=== PATIENT | female | born 1965 | race Caucasian/White ===

== ENCOUNTER 2024-05-19 17:54 | Inpatient (IN) | payer OTHER, SELFPAY ==
[2024-05-19] VITALS (11 sets, daily range): BP systolic 107–178; BP diastolic 52–93; PULSE 56–98; RESP 13–18; TEMP 35.8–36.8; O2SAT 94–100; BMI 29.5
--- NOTE | 2024-05-19 18:03 | EKG12_ITS ---
Test Reason : CP ADMIT Blood Pressure : */* mmHG Vent. Rate : 67 BPM Atrial Rate : 67 BPM P-R Int : 140 ms QRS Dur : 66 ms QT Int : 424 ms P-R-T Axes : 49 -30 7 degrees QTcB Int : 448 ms Sinus rhythm with marked sinus arrhythmia Left axis deviation Low voltage QRS Inferior infarct , age undetermined Abnormal ECG When compared with ECG of 19-May-2024 18:02, MANUAL COMPARISON REQUIRED DATA IS UNCONFIRMED Confirmed by BROOKS BURGER ([id number]), video effects editor YOANDY BELLE ([id number]) on 05/24/2024 6:16:30 AM Referred By: RANGEL Confirmed By: BROOKS BURGER
--- NOTE | 2024-05-19 18:04 | EDS_ITS ---
HPI History of Present Illness Chief Complaint: Chest Pain Detail of Chief Complaint: Chest tightness Informant: patient Onset/Context/Timing Onset: Today and Hours Activity at onset: sudden and light activity Timing: Continuous Quality: Positive for Tightness Location: Substernal Current Severity: Mild Maximum Severity: Moderate Worsened By: Nothing Relieved By: Nothing Associated Symptoms: Positive for Dyspnea and - (Ache intermittently to the left side of the jaw.); Negative for Nausea, Vomiting, Diaphoresis, Cough, Fever, Lightheadedness, Acid Reflux or Palpitations Narrative Prior Similar Symptoms: No CVD Risk Factors: Positive for Hypertension; Negative for Diabetes, Hypercholesterolemia, Family History 1' </=55 or Smoking PE Risk Factors: Negative for Recent Travel/Surgery, Recent Immobilization, Prior DVT or PE or OCP + Smoking + >/=35 TAD Risk Factors: Positive for Marfan's Syndrome and Family History; Negative for Hypertension [facility] Medical History (Updated 05/19/24 @ 19:[address] Willian Celaya MD) Hypertension Allergy/AdvReac Type Severity Reaction Status Date / Time No Known Allergies Allergy Verified 05/19/24 17:55 Social History Smoking Status: Never smoker EXAM Physical Exam Const Vital Signs: 05/19/24 17:55 05/19/24 18:04 05/19/24 18:16 Temperature 96.5 F L Temperature Source Temporal Pulse Rate 78 74 Respiratory Rate 16 Blood Pressure 178/90 H 170/61 H Blood Pressure Mean 119 Pulse Ox 96 100 Oxygen Delivery Method Room Air Room Air 05/19/24 18:54 05/19/24 18:58 05/19/24 19:00 Temperature Temperature Source Pulse Rate 69 68 98 Respiratory Rate 16 16 Blood Pressure 140/88 H 140/88 H 140/91 H Blood Pressure Mean 105 107 Pulse Ox 97 94 Oxygen Delivery Method Room Air Room Air 05/19/24 19:04 Temperature Temperature Source Pulse Rate 90 Respiratory Rate Blood Pressure 131/93 H Blood Pressure Mean Pulse Ox Oxygen Delivery Method [facility] MDM History & Record Review Discussion w/independent historian: Patient Lab Data Attestation: I reviewed the patient's lab results. Lab results narrative: CBC is unremarkable. Basic metabolic panel was a glucose of 160 with normal CO2 anion gap. Troponin is 4759. Labs: Laboratory Results - last 24 hr 05/19/24 18:05 WBC 6.6 RBC 5.12 Hgb 14.3 Hct 43.7 MCV 85.4 MCH 27.9 MCHC 32.7 RDW Std Deviation 42.5 RDW Coeff of Adolfo 13.6 Plt Count 258 MPV 10.2 Immature Gran % (Auto) 0.200 Neut % (Auto) 52.0 Lymph % (Auto) 35.6 [place] % (Auto) 8.5 Eos % (Auto) 3.2 Baso % (Auto) 0.5 Absolute Neuts (auto) 3.4 Absolute Lymphs (auto) 2.34 Nucleated RBC % 0 PT Cancelled INR Cancelled APTT Cancelled Sodium 140 Potassium 3.6 Chloride 107 Carbon Dioxide 27.0 Anion Gap 6 BUN 13 Creatinine 0.77 Estim Creat Clear Calc 76.67 Est GFR (MDRD) Af Amer 98 Est GFR (MDRD) Non-Af 81 BUN/Creatinine Ratio 16.9 Glucose 116 H Calcium 9.8 Troponin I High Sens 4759 H* Radiography Chest X-Ray - ED: 1 View, Read by ED Physician, Normal, Heart, Lungs, Mediastinum, Bony Structures and No Acute Disease EKG Initial EKG: Attestation: I personally reviewed and interpreted this EKG as follows: Interpretation: Sinus Rhythm (Rate is 72. [place] to the left. NC interval is 106 6 ms per cures duration 70 ms. QT duration 388 ms. There is some ossific changes noted. There is no acute ischemic changes to suggest subendocardial OK or ST elevation OK.) Management Discussion w/another healthcare provider: Hospitalist and Retail Support Associate Treatment and Re-Evaluation :: Patient received aspirin. She had relief of her chest heaviness with nitroglycerin. In light of her history, laboratory results Dr. Buchanan was contacted. Would like patient anticoagulate with heparin. Would like patient n.p.o. Plan is cath in the morning. Patient and were made aware. Hospitalist has been paged. Discharge Plan Triage Chief Complaint: Chest Pain ED Provider: Willian eClaya Dx/Rx/DC Orders Clinical Impression: Non-ST elevated myocardial infarction, Elevated blood pressure reading with diagnosis of hypertension Primary Care Provider: Pascual Zafar Referrals: Pascual Zafar DO [Primary Care Provider] - Print Language: Turkish Disposition Disposition: Acute Care Hospital [facility]
[2024-05-19] MEDS: Aspirin 81 MG TAB.CHEW 324 MG PO (18:08)
[2024-05-19] MEDS: Nitroglycerin SL (ED/IMG/CATH) 0.4 MG TABLET SL ×3 (18:16→19:04)
[2024-05-19 18:21] LABS: Absolute Lymphocyte Count 2.34 X10^3/uL (0.83-4.51); Absolute Neutrophil Count 3.4 X10^3/uL (2.0-7.7); Basophil# 0.03 X10^3/uL; Basophil% 0.5 % (0-1); Eosinophil# 0.21 X10^3/uL; Eosinophils% 3.2 % (0-5); Hematocrit 43.7 % (37-47); Hemoglobin 14.3 g/dL (12.0-15.0); Lymphocyte # 2.34 X10^3/ul (0.83-4.51); Lymphocyte % 35.6 % (19-41); Mean Corp Hgb Conc 32.7 g/dL (32-36); Mean Corpuscular Hgb 27.9 pg (27.0-32.0); Mean Corpuscular Volume 85.4 fL (81-99); Mean Platelet Vol. 10.2 fl (6.2-12.0); Monocyte# 0.56 X10^3/uL; Monocyte% 8.5 % (0-10); NRBC Flagged by Analyzer 0 % (0-5); Neutrophil # 3.43 X10^3/uL (2.7-7.7); Platelet Count 258 K/mm3 (150-450); RBC Distribution Width CV 13.6 % (11.6-14.6); RBC Distribution Width SD 42.5 fl (35.1-43.9); Red Blood Count 5.12 M/mm3 (4.2-5.4); White Blood Count 6.6 K/mm3 (4.4-11.0)
--- NOTE | 2024-05-19 18:30 | RAD_ITS ---
STUDY: X-RAY CHEST REASON FOR EXAM: Female, 58 years old. chest pain TECHNIQUE: AP portable COMPARISON: None. FINDINGS: The lungs are clear and expanded. Tiny calcified granuloma in the left lower lobe and right upper lobe There is no demonstrated pleural abnormality. Normal size heart. Normal mediastinum and vasiliy. Normal visualized pulmonary arteries. Normal visualized aortic arch and descending thoracic aorta. Normal visualized thoracic spine. Normal visualized ribs, clavicles, and shoulders. There is no demonstrated abnormality of the visualized soft tissue structures of the upper abdomen. RAD/Chest 1 View (Portable) IMPRESSION: Old granulomatous disease.. No acute cardiopulmonary pathology. Electronically Signed: Shady Armendariz MD at 19:11 [facility] ,
[2024-05-19 18:32] LABS: Anion Gap 6 (5-15); BUN 13 mg/dL (7-18); BUN/Creat Ratio 16.9 RATIO (10-20); Calcium,Total 9.8 mg/dL (8.5-10.1); Chloride 107 mmol/L (98-107); Creatinine, Serum 0.77 mg/dL (0.55-1.02); EST Glomerular Filtration Rate 81 mL/min (>60); Est Glom Filt Rate - Afr Amer 98 mL/min (>60); Estimated Creatinine Clearance 76.67 ml/min; Glucose 116 mg/dL (74-106); Potassium 3.6 mmol/L (3.5-5.1); Sodium Level 140 mmol/L (136-145); Troponin-I HS (w/2H Reflex) 4759 pg/mL (3.0-54.0)
[2024-05-19 19:05] LABS: Partial Thromboplast Time 26.6 Seconds (24.1-36.2); Prothrombin Time (Protime)PT. 12.9 SECONDS (11.7-14.9)
[2024-05-19] MEDS: Heparin Injection (Vial) 5,000 UNIT/ML VIAL 4000 UNIT IV (19:09)
[2024-05-19] MEDS: HEPARIN/D5w 25,000 UNITS 25,000 UNITS/250 ML IV.SOLN. 9 UNITS CONT INF (19:17)
--- NOTE | 2024-05-19 19:24 | HP.PCM.HOS_ITS ---
HPI - General General Date of Admission: 05/19/24 Date of Service: 05/19/24 Chief Complaint: Chest Pain HPI Narrative JUVENTINO PIERSON, is a 58 F with a past medical history of essential hypertension; on Lisinopril, overweight; with BMI of 29.6 this admission and positive family history of premature CAD in her father who allegedly had an W[place] at age 59 who presents to [facility] ER complaining of chest pain. Ms. Pierson reports her symptoms began a few hours prior to arrival with the sudden onset of chest pain with light activity. She describes the chest pain as substernal, pressure-like, tightness, continuous, moderate and radiating into her jaw with an aching sensation and with nothing seeming to make the pain better or worse. She also admits to SOB but she denies associated fever, chills, nausea, vomiting, abdominal pain, diaphoresis or other recent illness but she does admit to increased life-stress due to taking care of aging [id number] with her having a recent fall yesterday and with increased exertion trying to help her get up with subsequent back pain since that time as a precursor to her then developing chest pain. In the ER she was noted to have an elevated initial troponin level of 4,759 pg/mL present on admission that then escalated to 5,888 pg/mL on second check consistent with NSTEMI with the ER physician contacting the utility locate technician on-call with formal consultation pending in the AM for [facility]. She was then admitted to the PCU for ongoing care for a stay that is expected to extend beyond 2 midnights. [facility] Medical History Hypertension Home Medications ?Medication ?Instructions ?Recorded ?Last Taken ?Type lisinopril 10 mg tablet 10 mg PO DAILY 05/19/24 Unknown History Allergy/AdvReac Type Severity Reaction Status Date / Time No Known Allergies Allergy Verified 05/19/24 17:55 Social History Smoking Status: Never smoker ROS ROS Narrative Review of Systems: Constitutional: Patient denies fever or chills. Eyes: Patient denies changes in vision or discharge from eyes. ENT: Patient denies runny nose, sore throat or ear pain. Resp: Patient admits to SOB but denies cough. CV: Patient admits to chest pain with a continuous sensation of tightness as per HPI. GI: Patient denies nausea, vomiting, diarrhea, constipation or abdominal pain. : Patient denies dysuria or hematuria. MSK: Patient denies arthralgias or myalgias. Skin: Patient denies rash, abscess or jaundice. Psych: Patient denies symptoms of uncontrolled depression or anxiety. Neuro: Patient denies headache, paresthesias or focal neurologic deficits. Allergy: Patient denies lip swelling, tongue swelling or urticaria. Hematology: Patient denies easy bleeding or easy bruisability. Endocrinology: Patient denies polyuria, polydipsia or polyphagia. 14 point ROS otherwise negative except for positives noted above in HPI. Vital Signs Vital Signs Vital Signs: 05/19/24 17:55 05/19/24 18:04 05/19/24 18:16 Temperature 96.5 F L Temperature Source Temporal Pulse Rate 78 74 Respiratory Rate 16 Blood Pressure 178/90 H 170/61 H Blood Pressure Mean 119 Pulse Ox 96 100 Oxygen Delivery Method Room Air Room Air 05/19/24 18:54 05/19/24 18:58 05/19/24 19:00 Temperature Temperature Source Pulse Rate 69 68 98 Respiratory Rate 16 16 Blood Pressure 140/88 H 140/88 H 140/91 H Blood Pressure Mean 105 107 Pulse Ox 97 94 Oxygen Delivery Method Room Air Room Air 05/19/24 19:04 Temperature Temperature Source Pulse Rate 90 Respiratory Rate Blood Pressure 131/93 H Blood Pressure Mean Pulse Ox Oxygen Delivery Method Weight Weight: 167 lb Body Mass Index (BMI) 29.5 Physical Exam Const alert, oriented x3, no apparent distress, average body habitus and healthy appearing General Appearance: cooperative HEENT normocephalic, head/scalp atraumatic, hearing grossly normal bilaterally and moist oral mucous membranes Eyes PERRL and EOMs intact bilaterally Neck no lymphadenopathy and supple Resp normal respiratory effort, no retractions, no use of accessory muscles and clear to auscultation bilaterally Cardio regular rate and regular rhythm GI normal to inspection, nondistended, normoactive bowel sounds, soft to palpation, non-tender and non-distended Extremity normal to inspection, full ROM and no clubbing, cyanosis or edema Skin Skin Narrative: Patient has no evidence of rash, abscess or jaundice. Neuro oriented x3, CN's II-XII intact bilaterally, moves all extremities and no focal motor deficits Sensorium / Orientation: awake, alert, oriented to person, oriented to place and oriented to time Speech: speech normal Psych affect normal Results Medical Records Data Attestation: I reviewed the patient's medical records Lab / Micro Data Attestation: I reviewed the patient's lab results. 05/20/24 05:17 05/20/24 05:17 Labs: Laboratory Results - last 24 hr 05/19/24 18:05: WBC 6.6, RBC 5.12, Hgb 14.3, Hct 43.7, MCV 85.4, MCH 27.9, MCHC 32.7, RDW Std Deviation 42.5, RDW Coeff of Adolfo 13.6, Plt Count 258, MPV 10.2, Immature Gran % (Auto) 0.200, Neut % (Auto) 52.0, Lymph % (Auto) 35.6, [place] % (Auto) 8.5, Eos % (Auto) 3.2, Baso % (Auto) 0.5, Absolute Neuts (auto) 3.4, Absolute Lymphs (auto) 2.34, Nucleated RBC % 0, PT 12.9, INR 1.0, APTT 26.6, Sodium 140, Potassium 3.6, Chloride 107, Carbon Dioxide 27.0, Anion Gap 6, BUN 13, Creatinine 0.77, Estim Creat Clear Calc 76.67, Est GFR (MDRD) Af Amer 98, Est GFR (MDRD) Non-Af 81, BUN/Creatinine Ratio 16.9, Glucose 116 H, Calcium 9.8, Troponin I High Sens 4759 H* Imaging Radiology Impression Chest X-Ray 05/19/24 18:30 IMPRESSION: Old granulomatous disease.. No acute cardiopulmonary pathology. Electronically Signed: Shady Armendariz MD at 19:11 EST Reading Location ID and State: [facility] [place] Tel , Service support , Assessment & Plan Assessment/Plan (1) Non-ST elevated myocardial infarction: (2) Elevated blood pressure reading with diagnosis of hypertension: (3) Overweight (BMI 25.0-29.9): PLAN: Plan 1. NSTEMI; evidenced by elevated initial troponin of 4,759 pg/mL present on admission that the escalated to 5,888 pg/mL in the setting of a positive family history of premature CAD in her father who allegedly had an [place] at age 59 - Admit to PCU for treatment under the NSTEMI protocol. Continue ECASA and IV Heparin plus add Plavix and statin. Serialize troponin. Give SL NTG prn for angina. Give Tylenol prn for [id number] (level 1-5/10) pain or fever. Give Morphine IV prn for severe (level 6-10/10) pain. Check echocardiogram to evaluate LVEF. Finally, the utility locate technician on-call was contacted by the ER physician and will formally consult in the AM for C with help appreciated in advance. 2. Essential Hypertension complicating #1 - Continue Lisinopril as previous plus give prn IV Hydralazine for systolic blood pressure > 160 mmHg. 3. Overweight; with BMI of 28.6 this admission compounding #1 & #2 - Weight loss will be recommended. Check TSH. This complicates her case and may hamper recovery. 4. DVT prophylaxis - Patient already on IV Heparin for #1. Total time: Approximately (but not less than) 55 minutes. Update: Patient did develop severe angina overnight that failed SL NTG x 3 and IV Morphine so she was started in IV NTG with marked improvement. Charges/Coding Visit Charges Inpatient E&M: 67117 Init Hosp L2
--- NOTE | 2024-05-19 19:43 | EKG12_ITS ---
Test Reason : CP Blood Pressure : */* mmHG Vent. Rate : 72 BPM Atrial Rate : 72 BPM P-R Int : 166 ms QRS Dur : 70 ms QT Int : 388 ms P-R-T Axes : 55 -33 42 degrees QTcB Int : 424 ms Normal sinus rhythm Left axis deviation Abnormal ECG Confirmed by BROOKS BURGER ([id number]), communications editor RED CELIS ([id number]) on 05/21/2024 11:57:52 AM Referred By: NAKIA Confirmed By: BROOKS BURGER
[2024-05-19 20:09] LABS: Reflex Troponin-HS? (from REC) Y
[2024-05-19] MEDS: Atorvastatin Calcium 80 MG Tablet PO (21:11)
[2024-05-19] MEDS: Clopidogrel Bisulfate 75 MG Tablet PO (21:11)
[2024-05-19 21:22] LABS: Troponin-I HS 5888 pg/mL (3.0-54.0)
[2024-05-19] MEDS: Acetaminophen 325 MG Tablet 650 MG PO (22:03)
[2024-05-19] MEDS: Morphine 2 MG/ML Syringe IV (23:20)
[2024-05-19] MEDS: 0.9% Saline Lock 10 ML Syringe IV (23:21)
[2024-05-20] VITALS (38 sets, daily range): BP systolic 105–148; BP diastolic 66–85; PULSE 63–111; RESP 12–20; TEMP 36.4–37.9; O2SAT 93–99
[2024-05-20 01:36] LABS: Partial Thromboplast Time 76.5 Seconds (24.1-36.2)
[2024-05-20 01:49] LABS: Troponin-I HS 8074 pg/mL (3.0-54.0)
[2024-05-20] MEDS: Nitroglycerin (INPATIENT USE) 0.4 MG TAB.SUBL SL ×3 (01:51→02:10)
--- NOTE | 2024-05-20 01:57 | EKG12_ITS ---
Test Reason : CP Blood Pressure : */* mmHG Vent. Rate : 78 BPM Atrial Rate : 78 BPM P-R Int : 172 ms QRS Dur : 68 ms QT Int : 380 ms P-R-T Axes : 57 -42 23 degrees QTcB Int : 433 ms Sinus rhythm with marked sinus arrhythmia Left axis deviation Low voltage QRS Abnormal ECG When compared with ECG of 20-May-2024 02:17, MANUAL COMPARISON REQUIRED DATA IS UNCONFIRMED Confirmed by BROOKS BURGER ([id number]), market editor YOANDY BELLE ([id number]) on 05/21/2024 1:46:25 PM Referred By: KATHARINA Confirmed By: BROOKS BURGER
[2024-05-20] MEDS: Nitroglycerin Infusion 250 ML 3 MG CONT INF (03:09)
[2024-05-20 05:28] LABS: Hemoglobin 12.7 g/dL (12.0-15.0); Mean Corp Hgb Conc 32.6 g/dL (32-36); Mean Corpuscular Hgb 28.4 pg (27.0-32.0); Mean Corpuscular Volume 87.2 fL (81-99); Mean Platelet Vol. 10.3 fl (6.2-12.0); Platelet Count 220 K/mm3 (150-450); RBC Distribution Width CV 13.7 % (11.6-14.6); RBC Distribution Width SD 43.5 fl (35.1-43.9); Red Blood Count 4.47 M/mm3 (4.2-5.4); White Blood Count 6.3 K/mm3 (4.4-11.0)
[2024-05-20 05:53] LABS: Troponin-I HS 10320 pg/mL (3.0-54.0)
--- NOTE | 2024-05-20 05:55 | ECHOCS_ITS ---
Reason For Study: NSTEMI Procedure This was a 2D Doppler, Color Flow transthoracic echocardiogram. The study was technically difficult. Exam performed portable in patient room. Left Ventricle Normal LV size. Left ventricular systolic function is normal. The estimated ejection fraction is 60 %. Stage 1 diastolic dysfunction. No regional wall motion abnormalities noted. Right Ventricle Normal RV size. Normal systolic function. Atria Normal left atrium. Normal right atrium. Mitral Valve The mitral valve is structurally normal. No prolapse or stenosis seen. Tricuspid Valve Normal tricuspid valve. Trivial tricuspid valve insufficiency. Unable to estimate RV systolic pressure due to insufficient tricuspid regurgitant envelope. Aortic Valve Trisinus/trileaflet aortic valve. Pulmonic Valve Normal pulmonic valve. Mild (1+) pulmonic valve insufficiency. Great Vessels Normal aortic root. Pericardium/Pleural No pericardial effusion. Medication Diluted definity 1.5ml given slow IV push to enhance endocardial definition. MMode/2D Measurements & Calculations LVIDd: 3.8 cm IVSd: 0.98 cm LVOT diam: 2.0 cm LVIDs: 2.4 cm LVPWd: 0.92 cm FS: 35.2 % LVOT area: 3.0 cm2 Ao root diam: 3.1 cm asc Aorta Diam: 3.2 cm LAV(MOD-bp): 25.0 ml LAV(MOD-bp) Indexed: 14.0 ml/m2 LAV(MOD-sp2): 30.6 ml LAV(MOD-sp4): 18.1 ml SV(MOD-sp4): 35.8 ml LVAd ap4: 23.5 cm2 LVAd ap2: 20.5 cm2 LVLd ap4: 7.2 cm LVLd ap2: 7.7 cm SI(MOD-sp4): 20.0 ml/m2 EDV(MOD-sp4): 62.3 ml EDV(MOD-sp2): 46.7 ml EDV(sp4-el): 64.9 ml EDV(sp2-el): 46.7 ml LVAs ap4: 15.0 cm2 LVAs ap2: 10.3 cm2 LVLs ap4: 6.8 cm LVLs ap2: 6.2 cm ESV(MOD-sp4): 26.6 ml ESV(MOD-sp2): 15.1 ml ESV(sp4-el): 27.9 ml ESV(sp2-el): 14.5 ml EF(MOD-sp4): 57.4 % EF(MOD-sp2): 67.6 % EF(sp4-el): 57.0 % SV(MOD-sp2): 31.6 ml SV(sp4-el): 37.0 ml LA A4 area: 9.6 cm2 SI(MOD-sp2): 17.6 ml/m2 LA dimension(2D): 3.3 cm TAPSE: 2.0 cm Time Measurements MV dec time: 0.27 sec Doppler Measurements & Calculations MV E max philip: 57.7 cm/sec Lat Peak E' Philip: 6.6 cm/sec Med Peak E' Philip: 5.8 cm/sec MV A max philip: 90.1 cm/sec E/E' lat: 8.8 E/E' med: 10.0 MV E/A: 0.64 MV V2 max: 95.1 cm/sec MV dec slope: 216.6 cm/sec2 Ao V2 max: 128.4 cm/sec MV max P.6 mmHg Ao max P.6 mmHg MV V2 mean: 47.4 cm/sec Ao V2 mean: 82.1 cm/sec MV mean P.1 mmHg Ao mean P.3 mmHg MV V2 VTI: 30.9 cm Ao V2 VTI: 22.7 cm MVA(VTI): 2.1 cm2 AV (velocity ratio): 0.95 TARIK(I,D): 2.9 cm2 TARIK(V,D): 2.6 cm2 LV V1 max: 112.4 cm/sec SV(LVOT): 64.8 ml PA V2 max: 87.4 cm/sec LV V1 max P.1 mmHg PA V2 mean: 63.1 cm/sec LV V1 mean P.9 mmHg LV V1 mean: 78.8 cm/sec LV V1 VTI: 21.7 cm ECHO/Echo Complete W/ Contrast Interpretation Summary The estimated ejection fraction is 60 %. Stage 1 diastolic dysfunction. Structually normal valves. The study was technically difficult. Contrast injection was performed. Ordering Physician: Perry Pittman Referring Physician: Pascual Zafar Performed By: Sisi Payton and Student
[2024-05-20 06:03] LABS: AST(SGOT) 84 U/L (15-37); Alanine Aminotransfer ALT/SGPT 36 U/L (13-56); Albumin, Serum 3.3 g/dL (3.2-5.0); Alkaline Phosphatase 67 U/L (45-117); Anion Gap 7 (5-15); BUN 12 mg/dL (7-18); BUN/Creat Ratio 18.2 RATIO (10-20); Chloride 108 mmol/L (98-107); Cholesterol 159 mg/dL (200); Creatinine, Serum 0.66 mg/dL (0.55-1.02); EST Glomerular Filtration Rate 97 mL/min (>60); Est Glom Filt Rate - Afr Amer 118 mL/min (>60); Estimated Creatinine Clearance 89.45 ml/min; Globulin 3.3 g/dL (2.2-4.2); Glucose 117 mg/dL (74-106); High Density Lipoprotein 63 mg/dL; Potassium 3.6 mmol/L (3.5-5.1); Protein, Total 6.6 g/dL (6.4-8.2); Sodium Level 140 mmol/L (136-145); Triglycerides 81 mg/dL; Very Low Density Lipoprotein 16 mg/dL (5-40)
[2024-05-20] MEDS: 0.9% Saline Lock 10 ML Syringe IV (06:03)
--- NOTE | 2024-05-20 06:42 | EKG12_ITS ---
Test Reason : CP Blood Pressure : */* mmHG Vent. Rate : 116 BPM Atrial Rate : 116 BPM P-R Int : 162 ms QRS Dur : 66 ms QT Int : 340 ms P-R-T Axes : 50 -45 44 degrees QTcB Int : 472 ms Sinus tachycardia Left axis deviation Inferior infarct , age undetermined Possible Anterolateral infarct , age undetermined Abnormal ECG When compared with ECG of 19-May-2024 19:58, MANUAL COMPARISON REQUIRED DATA IS UNCONFIRMED Confirmed by BROOKS BURGER ([id number]), television news video editor YOANDY BELLE ([id number]) on 05/21/2024 1:47:32 PM Referred By: RANGEL Confirmed By: BROOKS BURGER
--- NOTE | 2024-05-20 08:06 | CON.PCM.CA_ITS ---
Documented by User: Catrachita NARVAEZ PA 05/20/24 10:06 Assessment & Plan Assessment/Plan (1) Non-ST elevated myocardial infarction: (2) Hypertension: HPI Consult Data Date of Consult: 05/20/24 HPI Narrative HPI Narrative: JUVENTINO PIERSON, is a 58 F who presented to [facility] ER on 05/19/2024 for chest discomfort. She described this as substernal, pressure- like, tightness, continuous, radiating to her jaw with an aching sensation. Nitroglycerin in the emergency room did not relieve this. Troponins trended 4759, 5888, 8074, 10,320. She was admitted to PCU for a non-STEMI. She does have a family history of premature coronary artery disease where her father had a myocardial infarction at 59. She does have a history of hypertension and obesity. She is scheduled to undergo a diagnostic heart catheterization this morning. [facility] Medical History (Updated 05/20/24 @ 08:12 by Catrachita NARVAEZ PA) Hypertension Home Medications ?Medication ?Instructions ?Recorded ?Last Taken ?Type lisinopril 10 mg tablet 10 mg PO DAILY 05/19/24 Unknown History Allergy/AdvReac Type Severity Reaction Status Date / Time No Known Allergies Allergy Verified 05/19/24 17:55 Social History Smoking Status: Never smoker ROS ROS Narrative Review of Systems: Constitutional: Patient denies fever or chills. Eyes: Patient denies changes in vision or discharge from eyes. ENT: Patient denies runny nose, sore throat or ear pain. Resp: Patient admits to SOB but denies cough. CV: Patient admits to chest pain with a continuous sensation of tightness as per HPI. GI: Patient denies nausea, vomiting, diarrhea, constipation or abdominal pain. : Patient denies dysuria or hematuria. MSK: Patient denies arthralgias or myalgias. Skin: Patient denies rash, abscess or jaundice. Psych: Patient denies symptoms of uncontrolled depression or anxiety. Neuro: Patient denies headache, paresthesias or focal neurologic deficits. Allergy: Patient denies lip swelling, tongue swelling or urticaria. Hematology: Patient denies easy bleeding or easy bruisability. Endocrinology: Patient denies polyuria, polydipsia or polyphagia. Physical Exam Const alert, oriented x3, no apparent distress, average body habitus and healthy appearing General Appearance: cooperative HEENT normocephalic, head/scalp atraumatic, hearing grossly normal bilaterally and moist oral mucous membranes Eyes PERRL and EOMs intact bilaterally Neck no lymphadenopathy and supple Resp normal respiratory effort, no retractions, no use of accessory muscles and clear to auscultation bilaterally Cardio regular rate and regular rhythm GI normal to inspection, nondistended, normoactive bowel sounds, soft to palpation, non-tender and non-distended Extremity normal to inspection, full ROM and no clubbing, cyanosis or edema Skin Skin Narrative: Patient has no evidence of rash, abscess or jaundice. Neuro oriented x3, CN's II-XII intact bilaterally, moves all extremities and no focal motor deficits Sensorium / Orientation: awake, alert, oriented to person, oriented to place and oriented to time Speech: speech normal Psych affect normal Risk Stratification Risk Stratification Applicable: Yes Age >/= 65: No >/= 3 CAD Risk Factors (HTN, HLD, DM, family hx of CAD, or current smoker): No Aspirin Use in the Past 7 Days: No Severe Angina (>/= episodes in 24 hours): Yes EKG ST Changes >/= 0.5mm: No Positive Cardiac Marker: Yes TRISTA Risk Stratification Score: 2 TRISTA % Risk: 8% Risk Objective Data Vital Signs: Vital Signs Temp Pulse Resp BP Pulse Ox O2 Del Method O2 Flow Rate 97.7 F L 102 H 17 117/80 99 Nasal Cannula 3 05/20/24 08:05 05/20/24 07:15 05/20/24 07:30 05/20/24 07:30 05/20/24 07:30 05/20/24 07:30 05/20/24 07:30 Oxygen Flow Rate (L/min) 3 Oxygen Delivery Method Nasal Cannula Weight: 167 lb Body Mass Index (BMI) 29.5 Intake & Output: Intake and Output for Last 24 Hours 05/18/24 05/19/24 05/20/24 23:59 23:59 23:59 Intake Total 0 / 0 119.17 / 119.17 Output Total 0 / 0 Balance 0 / 0 119.17 / 119.17 Lab / Micro Data 05/20/24 05:17 05/20/24 05:17 Labs: Laboratory Results - last 24 hr 05/19/24 18:05: WBC 6.6, RBC 5.12, Hgb 14.3, Hct 43.7, MCV 85.4, MCH 27.9, MCHC 32.7, RDW Std Deviation 42.5, RDW Coeff of Adolfo 13.6, Plt Count 258, MPV 10.2, Immature Gran % (Auto) 0.200, Neut % (Auto) 52.0, Lymph % (Auto) 35.6, [place] % (Auto) 8.5, Eos % (Auto) 3.2, Baso % (Auto) 0.5, Absolute Neuts (auto) 3.4, Absolute Lymphs (auto) 2.34, Nucleated RBC % 0, PT 12.9, INR 1.0, APTT 26.6, Sodium 140, Potassium 3.6, Chloride 107, Carbon Dioxide 27.0, Anion Gap 6, BUN 13, Creatinine 0.77, Estim Creat Clear Calc 76.67, Est GFR (MDRD) Af Amer 98, Est GFR (MDRD) Non-Af 81, BUN/Creatinine Ratio 16.9, Glucose 116 H, Calcium 9.8, Troponin I High Sens 4759 H* 05/19/24 20:46: Troponin I High Sens 5888 H* 05/20/24 01:17: APTT 76.5 H, Troponin I High Sens 8074 H* 05/20/24 05:17: WBC 6.3, RBC 4.47, Hgb 12.7, Hct 39.0, MCV 87.2, MCH 28.4, MCHC 32.6, RDW Std Deviation 43.5, RDW Coeff of Adolfo 13.7, Plt Count 220, MPV 10.3, Sodium 140, Potassium 3.6, Chloride 108 H, Carbon Dioxide 25.0, Anion Gap 7, BUN 12, Creatinine 0.66, Estim Creat Clear Calc 89.45, Est GFR (MDRD) Af Amer 118, Est GFR (MDRD) Non-Af 97, BUN/Creatinine Ratio 18.2, Glucose 117 H, Calcium 9.0, Total Bilirubin 0.50, AST 84 H, ALT 36, Alkaline Phosphatase 67, Troponin I High Sens 64080 H*, Total Protein 6.6, Albumin 3.3, Globulin 3.3, Albumin/Globulin Ratio 1.0, Triglycerides 81, Cholesterol 159, LDL Cholesterol 80, VLDL Cholesterol 16, HDL Cholesterol 63, TSH 3.110 Cardiology Labs/Tests 05/19/24 18:05: WBC 6.6, RBC 5.12, Hgb 14.3, Hct 43.7, MCV 85.4, MCH 27.9, MCHC 32.7, Plt Count 258, MPV 10.2, Immature Gran % (Auto) 0.200, Neut % (Auto) 52.0, Lymph % (Auto) 35.6, [place] % (Auto) 8.5, Eos % (Auto) 3.2, Baso % (Auto) 0.5, Absolute Neuts (auto) 3.4, Nucleated RBC % 0, PT 12.9, INR 1.0, APTT 26.6, Sodium 140, Potassium 3.6, Chloride 107, Carbon Dioxide 27.0, Anion Gap 6, BUN 13, Creatinine 0.77, Est GFR (MDRD) Af Amer 98, Est GFR (MDRD) Non-Af 81, BUN/Creatinine Ratio 16.9, Glucose 116 H, Calcium 9.8 05/20/24 01:17: APTT 76.5 H 05/20/24 05:17: WBC 6.3, RBC 4.47, Hgb 12.7, Hct 39.0, MCV 87.2, MCH 28.4, MCHC 32.6, Plt Count 220, MPV 10.3, Sodium 140, Potassium 3.6, Chloride 108 H, Carbon Dioxide 25.0, Anion Gap 7, BUN 12, Creatinine 0.66, Est GFR (MDRD) Af Amer 118, Est GFR (MDRD) Non-Af 97, BUN/Creatinine Ratio 18.2, Glucose 117 H, Calcium 9.0, Total Bilirubin 0.50, Triglycerides 81, Cholesterol 159, LDL Cholesterol 80, VLDL Cholesterol 16, HDL Cholesterol 63 Rhythm: Radiography Diagnostic Testing: Radiology Impression Chest X-Ray 05/19/24 18:30 IMPRESSION: Old granulomatous disease.. No acute cardiopulmonary pathology. Electronically Signed: Shady Armendariz MD at 19:11 EST Reading Location ID and State: [facility] / [place] Tel , Service support , Documented by User: Dr. Nayeli Piña MD 05/20/24 11:01 Assessment & Plan Assessment/Plan (1) Non-ST elevated myocardial infarction: (2) Hypertension: PLAN: Plan 58-year-old patient with history of hypertension I independently examined this patient review of the current evaluation here in the hospital I did perform cardiac catheterization The culprit lesion noted to be a small OM 3 branch and that will be treated with medical therapy Patient symptoms of chest pain resolved Will discontinue the heparin as well as nitroglycerin She remained stable in the Strategic Intelligence Officer hemodynamically And she had an echocardiogram which showed her LV function is preserved. Cardiac care plan will include the following 1. To continue on dual antiplatelet therapy with Plavix/aspirin for 1 year 2. High-dose statin 3. Low-dose beta-srikanth as tolerated. 4. Consider adding CHANDNI inhibitor. Patient to follow-up with the cardiac team at [facility]. If she remained stable patient can be discharged home tomorrow The procedure of the cardiac catheterization was performed from the right radial artery. HPI Consult Data Date of Consult: 05/20/24 [facility] Medical History (Updated 05/20/24 @ 08:12 by Catrachita NARVAEZ, PA) Hypertension Home Medications ?Medication ?Instructions ?Recorded ?Last Taken ?Type lisinopril 10 mg tablet 10 mg PO DAILY 05/19/24 Unknown History Allergy/AdvReac Type Severity Reaction Status Date / Time No Known Allergies Allergy Verified 05/19/24 17:55 Social History Smoking Status: Never smoker Risk Stratification Age >/= 65: No TRISTA Risk Stratification Score: 2 TRISTA % Risk: 8% Risk Lab / Micro Data 05/20/24 05:17 05/20/24 05:17
[2024-05-20] MEDS: Clopidogrel Bisulfate 75 MG Tablet PO (08:10)
[2024-05-20] MEDS: Lisinopril 10 MG Tablet PO (08:11)
[2024-05-20 08:22] LABS: Partial Thromboplast Time 27.8 Seconds (24.1-36.2)
--- NOTE | 2024-05-20 08:41 | NURSING ---
Report called to Wearing Apparel Shaker DANIEL Garza
--- NOTE | 2024-05-20 09:50 | PCM.PN.HOSP ---
Reason for Visit Reason for Visit: Diagnoses Overweight (05/19/24) Essential (primary) hypertension (05/19/24) Non-ST elevation (NSTEMI) myocardial infarction (05/19/24) Subjective Subjective Patient seen after heart catheterization, she is feeling tired but has no other new or acute complaints Objective Data Objective Data Vital Signs: Vital Signs Temp Pulse Resp BP Pulse Ox O2 Del Method O2 Flow Rate 97.7 F L 100 19 H 117/70 97 Nasal Cannula 2 05/20/24 08:05 05/20/24 09:00 05/20/24 09:00 05/20/24 09:00 05/20/24 09:00 05/20/24 09:00 05/20/24 09:00 Oxygen Flow Rate (L/min) 2 Oxygen Delivery Method Nasal Cannula Weight: 75.75 kg Body Mass Index (BMI) 29.5 Intake & Output: Intake and Output for Last 24 Hours 05/18/24 05/19/24 05/20/24 23:59 23:59 23:59 Intake Total 0 / 0 132.67 / 132.67 Output Total 0 / 0 Balance 0 / 0 132.67 / 132.67 Lab / Micro Data 05/20/24 05:17 05/20/24 05:17 Labs: Laboratory Results - last 24 hr 05/19/24 18:05: WBC 6.6, RBC 5.12, Hgb 14.3, Hct 43.7, MCV 85.4, MCH 27.9, MCHC 32.7, RDW Std Deviation 42.5, RDW Coeff of Adolfo 13.6, Plt Count 258, MPV 10.2, Immature Gran % (Auto) 0.200, Neut % (Auto) 52.0, Lymph % (Auto) 35.6, [place] % (Auto) 8.5, Eos % (Auto) 3.2, Baso % (Auto) 0.5, Absolute Neuts (auto) 3.4, Absolute Lymphs (auto) 2.34, Nucleated RBC % 0, PT 12.9, INR 1.0, APTT 26.6, Sodium 140, Potassium 3.6, Chloride 107, Carbon Dioxide 27.0, Anion Gap 6, BUN 13, Creatinine 0.77, Estim Creat Clear Calc 76.67, Est GFR (MDRD) Af Amer 98, Est GFR (MDRD) Non-Af 81, BUN/Creatinine Ratio 16.9, Glucose 116 H, Calcium 9.8, Troponin I High Sens 4759 H* 05/19/24 20:46: Troponin I High Sens 5888 H* 05/20/24 01:17: APTT 76.5 H, Troponin I High Sens 8074 H* 05/20/24 05:17: WBC 6.3, RBC 4.47, Hgb 12.7, Hct 39.0, MCV 87.2, MCH 28.4, MCHC 32.6, RDW Std Deviation 43.5, RDW Coeff of Adolfo 13.7, Plt Count 220, MPV 10.3, Sodium 140, Potassium 3.6, Chloride 108 H, Carbon Dioxide 25.0, Anion Gap 7, BUN 12, Creatinine 0.66, Estim Creat Clear Calc 89.45, Est GFR (MDRD) Af Amer 118, Est GFR (MDRD) Non-Af 97, BUN/Creatinine Ratio 18.2, Glucose 117 H, Calcium 9.0, Total Bilirubin 0.50, AST 84 H, ALT 36, Alkaline Phosphatase 67, Troponin I High Sens 35535 H*, Total Protein 6.6, Albumin 3.3, Globulin 3.3, Albumin/Globulin Ratio 1.0, Triglycerides 81, Cholesterol 159, LDL Cholesterol 80, VLDL Cholesterol 16, HDL Cholesterol 63, TSH 3.110 05/20/24 07:41: APTT 27.8 Radiography Diagnostic Testing: Radiology Impression Chest X-Ray 05/19/24 18:30 IMPRESSION: Old granulomatous disease.. No acute cardiopulmonary pathology. Electronically Signed: Shady Armendariz MD at 19:11 EST Reading Location ID and State: [facility] / [place] Tel , Service support , Physical Exam Narrative General: Alert, oriented, no apparent distress but does appear tired HEENT: Atraumatic, normocephalic Eyes: Anicteric, normal conjunctiva, extraocular movements grossly intact Neck: Supple Respiratory: Clear to auscultation bilaterally, normal respiratory effort Cardiovascular: Regular rate and rhythm GI: Soft, nontender, nondistended Extremities: No edema Musculoskeletal: Moving all extremities Neuro: No overt focal neurological deficits Skin: No rashes appreciated Psych: Cooperative Assessment & Plan Assessment/Plan (1) Non-ST elevated myocardial infarction: PLAN: Plan # Type II NSTEMI -Patient presented with chest pain and had an initial troponin of 4759 which increased to 5888. Patient started on heparin drip, cardiology contacted, hospitalist contacted for admission -Troponin up trended to 10,000 -Patient loaded with aspirin and started on statin and Plavix -Heart cath performed 05/20/2024 demonstrated lesion in a small OM 3 branch that was suspected to be the culprit lesion and medical therapy was advised. -Cardiology recommended DAPT for 1 year, high-dose statin, low-dose beta-srikanth as tolerated, CHANDNI as tolerated #Hypertension -Continued on lisinopril -Will be started on low-dose beta-srikanth as well #DVT ppx: Lovenox subcu Sydnee Lofton MD Charges/Coding Visit Charges Inpatient E&M: 49217 Subs Hosp L1
--- NOTE | 2024-05-20 10:50 | PCIREPORT_ITS ---
PCI Cardiac Cath Report PCI Report: Cardiac catheterization report/left heart cath 1. Moderate sedation 2. Selective coronary angiography 3. Selective right coronary angiography 4. Placement of TR band to close the right radial artery arteriotomy site. Preprocedure diagnosis Patient is 58-year-old, presented to [facility] ED complaining of chest pain since Friday Has evaluation by EKG echocardiogram and a series of cardiac biomarker which was significant elevated Patient treated with heparin and nitroglycerin. Her symptoms of chest pain improved And she was taken today to the Community Relations Police Lieutenant as a region to evaluate and assess for CAD. Access 6 Ethiopian sheath placed in the right radial artery Diagnostic catheter used 1. 5 Ethiopian JL 3 5 2. 5 Ethiopian JR4 Consent; Risk and benefit of procedure explained in detail patient like to proceed informed consent obtained Sedation/moderate sedation; Patient was given Versed as well as fentanyl. Procedure in detail; Patient brought to the Community Relations Police Lieutenant in fasting state Right radial artery area prepped and draped Access obtained from the right radial artery and 6 Ethiopian sheaths placed the right radial artery The new proceed with diagnostic catheter 5 Ethiopian JL 3 5 advancing aorta cannulated the left main Multiple views of the left coronary system were obtained Following this catheter exchanged for 5 Ethiopian JR4 and multiple views of the RCA obtained LVEDP was measured and a pullback recorded. Hemodynamic; LVEDP within normal around 40 mmHg No systolic gradient across aortic valve. Coronary angiography 1. Left main is normal angiographically bifurcating into LAD and left circumflex. 2. Left anterior descending artery is moderate to large in size and angiographically no significant atherosclerosis noted in the left anterior descending artery distal to prominent diagonal branch and abundant septal branches The left circumflex is moderate to large size The Pharis OM1 is large Second OM1 is a small tortuous The send OM1 is a small vessel and occluded at the midportion. 3. Circumflex in the AV groove is normal Small vessel distally. 4. RCA large dominant abnormal angiographically Conclusion recommendation 58-year-old patient with history of hypertension presented with chest pain With a clinical diagnosis of non-ST elevation AL Cardiac catheterization revealed occluded OM 3 branch which is small vessel I decided to treat this patient with medical therapy discussed all the finding of cardiac catheterization with the family and the Patient will return back into progressive care unit and will start on dual antiplatelet therapy with low-dose aspirin and will continue on Plavix Will give 300 mg of Plavix in the Community Relations Police Lieutenant will continue 75 mg in addition to high-dose statin and low-dose beta-srikanth as tolerated Patient can be scheduled as an outpatient for cardiac rehab As well to follow-up with grinding room inspector as an outpatient grinding room inspector is No immediate complication in the Community Relations Police Lieutenant Nayeli Piña MD,[facility]
--- NOTE | 2024-05-20 10:55 | CASEMGMT ---
RN CM Face to Face with patient for initial transition planning/care coordination assessment. RN CM introduced self and role at [facility]. Patient lying in bed, alert and oriented. Patient willing to participate in assessment and is able to answer all questions appropriately. Care providers, pharmacy, and demographics verified. Strata: 2 PCP: [facility] Specialists: none Preferred Pharmacy: [facility]; [facility] retail at discharge. Insurance: Self pay Prescription Benefit: none Living Will/HPOA: yes, Kenrick Alvarez LNOK: , daughter Living Arrangements: Patient lives with in a 2 story home with bed and bath on first floor, 3 steps and railing to enter the home. Patient is independent Transportation: self, DME/HHC: Patient has access to cane at home. No previous HHC or SNF Patient wishes to discharge home, denies need for home health at this time. Patient states she has no further needs or concerns at this time. CM to follow for discharge planning needs that may arise. Disposition Plan: Patient to discharge home with family support and follow-up plans in place. Clarisse NOLAND, RN, CM
--- NOTE | 2024-05-20 15:18 | CHAPLAIN ---
Type of Pastoral Visit _x__ Initial Visit ___ Follow-up Visit ___ On-call Visit ___ General Patient Visit ___ Spiritual Assessment ___ Family Conference ___ Bereavement ___ Rapid Response ___ Code Blue ___ Other (describe below) Pastoral Care Referral From _x__ Patient ___ Family ___ Nurse ___ Physician ___ Staff Psychologist ___ Tsa Screener ___ Other (describe below) Sacrament/Intervention _x__ Active listening ___ Anointing ___ Restorationist ___ Bereavement ___ Communion ___ [place] exploration ___ ___ Life review ___ Prayer ___ Reconciliation ___ Sacrament of Sick _x__ Supportive presence ___ Wedding ___ Other (describe below) Pastoral Comments patient is resting quietly in her room after a heart cath earlier this morning; spouse is at the bedside; pt reports on the procedure and what is next; both indicate that they are doing fine; pt denies further needs of support
[2024-05-20] MEDS: Metoprolol Tartrate 25 MG Tablet 12.5 MG PO (22:13)
[2024-05-20] MEDS: Acetaminophen 325 MG Tablet 650 MG PO (22:13)
[2024-05-20] MEDS: Atorvastatin Calcium 80 MG Tablet PO (22:15)
[2024-05-21 04:15] VITALS: BP 135/78; PULSE 82; RESP 16; TEMP 38.1; O2SAT 96
[2024-05-21 07:32] VITALS: O2SAT 96
[2024-05-21 08:25] LABS: Absolute Lymphocyte Count 1.49 X10^3/uL (0.83-4.51); Absolute Neutrophil Count 5.5 X10^3/uL (2.0-7.7); Basophil# 0.03 X10^3/uL; Basophil% 0.4 % (0-1); Eosinophil# 0.11 X10^3/uL; Eosinophils% 1.4 % (0-5); Hematocrit 39.4 % (37-47); Lymphocyte # 1.49 X10^3/ul (0.83-4.51); Lymphocyte % 19.1 % (19-41); Mean Corpuscular Hgb 28.1 pg (27.0-32.0); Mean Corpuscular Volume 85.3 fL (81-99); Mean Platelet Vol. 10.5 fl (6.2-12.0); Monocyte# 0.68 X10^3/uL; Monocyte% 8.7 % (0-10); NRBC Flagged by Analyzer 0 % (0-5); Neutrophil # 5.46 X10^3/uL (2.7-7.7); Neutrophil % 69.9 % (47-70); Platelet Count 195 K/mm3 (150-450); RBC Distribution Width CV 13.7 % (11.6-14.6); RBC Distribution Width SD 42.6 fl (35.1-43.9); Red Blood Count 4.62 M/mm3 (4.2-5.4); White Blood Count 7.8 K/mm3 (4.4-11.0)
[2024-05-21 08:55] LABS: Anion Gap 5 (5-15); BUN 12 mg/dL (7-18); BUN/Creat Ratio 20.7 RATIO (10-20); Calcium,Total 9.1 mg/dL (8.5-10.1); Chloride 110 mmol/L (98-107); Creatinine, Serum 0.58 mg/dL (0.55-1.02); EST Glomerular Filtration Rate 113 mL/min (>60); Est Glom Filt Rate - Afr Amer 137 mL/min (>60); Estimated Creatinine Clearance 101.79 ml/min; Glucose 112 mg/dL (74-106); Potassium 3.5 mmol/L (3.5-5.1); Sodium Level 139 mmol/L (136-145)
[2024-05-21 09:22] VITALS: BP 140/72; PULSE 86; RESP 16; TEMP 36.6; O2SAT 96
[2024-05-21 09:24] VITALS: PULSE 86
[2024-05-21] MEDS: Aspirin 81 MG TAB.CHEW PO (09:24)
[2024-05-21] MEDS: Metoprolol Tartrate 25 MG Tablet 12.5 MG PO (09:24)
[2024-05-21] MEDS: Lisinopril 5 MG Tablet PO (09:25)
[2024-05-21] MEDS: Clopidogrel Bisulfate 75 MG Tablet PO (09:25)
--- NOTE | 2024-05-21 10:05 | PCM.DC ---
Discharge Instructions Diet Discharge Diet: - (DASH diet) Activity Discharge Activity: - (See discharge instructions) Follow Up Care Test Results: Test results from this visit will be discussed in further detail at your follow-up appointment, if applicable. Discharge Plan Admission Admit Date/Time: 05/19/24 19:39 Primary Reason for Your Visit: Chest pain Attending Provider: Sydnee Lofton Primary Care Provider: Pascual Zafar Consulting Providers: Miguel Goodson; Perry Pittman Instructions Patient Instructions: DASH Plan Eat Heart Healthy Food Additional Instructions / Restrictions: DISCHARGE INSTRUCTIONS PLEASE READ *Please take this with you to your next doctors appointment* -you will be discharged on aspirin and clopidogrel, you will need to take both for 1 year at which time your outpatient physician will decide further regimen moving forward - you will also be discharged on metoprolol and atorvastatin - continue lisinopril -Please follow-up with Cardiology upon discharge. Please call their office to schedule hospital follow-up appointment upon discharge. -Please call your primary care provider's office upon discharge to schedule a hospital follow up within 1 week. -For any concerning signs or symptoms please call 911 or proceed to the nearest emergency department Discharge Orders/Prescriptions Prescriptions: New atorvastatin 80 mg Tablet 80 mg PO QHS 30 Days Qty: 30 0RF clopidogrel 75 mg Tablet 75 mg PO DAILY 30 Days Qty: 30 0RF aspirin 81 mg Tablet,Chewable 81 mg PO BREAKFAST 30 Days Qty: 30 0RF metoprolol tartrate 25 mg Tablet 12.5 mg PO BID 30 Days Qty: 30 0RF Continued lisinopril 10 mg tablet 10 mg PO DAILY Referrals / Follow Up: [facility] [Provider Group] ( -Please follow-up with cardiology upon discharge. Please call their office to schedule hospital follow-up appointment upon discharge.) Pascual Zafar, [Primary Care Provider] - Within 1 Week Disposition Disposition (needs filled in before D/C Order can be placed): Home, Self Care
--- NOTE | 2024-05-21 10:18 | PCM.DC.SUM ---
Providers Date of Admission: 05/19/24 Date of Discharge: 05/21/24 Primary Care Physician: Dr. Pascual Zafar, Consultations 05/19/24 20:26 Consult: Cardiology Routine Consulting Provider: Miguel Goodson Reason for Consult: Chest Pain EMERGENT Consult: No MD Notified: Yes Date Notified: 05/19/24 Time Notified: 19:40 Method of Notification: ED Physician Initiated Method of Consult:: In-Person Reason For Visit: NSTEMI AND ESSENTIAL HYPERTENSION Diagnosis Discharge Diagnosis (1) Non-ST elevated myocardial infarction: Status: Acute Code(s): I21.4 - Non-ST elevation (NSTEMI) myocardial infarction (2) CAD (coronary artery disease): Status: Acute Code(s): I25.10 - Atherosclerotic heart disease of robinson coronary artery without angina pectoris Plan # Type II NSTEMI #CAD w/out stenting #Hypertension #Viral URI Medications at Discharge Home Medications lisinopril 10 mg tablet 10 mg PO DAILY 05/19/24 aspirin 81 mg chewable tablet 81 mg PO BREAKFAST 30 days #30 tabs 05/21/24 atorvastatin 80 mg tablet 80 mg PO QHS 30 days #30 tabs 05/21/24 clopidogrel 75 mg tablet 75 mg PO DAILY 30 days #30 tabs 05/21/24 metoprolol tartrate 25 mg tablet 12.5 mg (1/2 x 25 mg) PO BID 30 days #30 tabs 05/21/24 Hospital Course Procedures - (TTE, heart catheterization) Summary of Care Provided Minutes Spent on Discharge: 25 Hospital Course: 58-year-old female history of hypertension who presented [facility] ED 05/19/2024 with chest pain that started few hours prior to arrival. Her initial troponin was 4700 and then escalated to 5800 consistent with NSTEMI. Patient admitted and started on a heparin drip and nitro drip and cardiology contacted. Patient had heart catheterization 05/20 which demonstrated lesion in a small OM 3 branch that was suspected to be the culprit lesion and medical therapy was advised. Patient's chest pain resolved and she had no further episodes. Echo was obtained which showed normal LV with EF 60% stage I diastolic dysfunction as well as structurally normal valves. She was monitored overnight and did well. Did have a slight temp of 100.5, reports she has multiple people with the flu at home and has a little bit of a dry cough and nasal drainage, declined to be swabbed for respiratory viruses but is vitally stable and not hypoxic and can be treated with supportive care at home. Patient has been verbalized understanding. Discharge instructions as followed: DISCHARGE INSTRUCTIONS PLEASE READ *Please take this with you to your next doctors appointment* -you will be discharged on aspirin and clopidogrel, you will need to take both for 1 year at which time your outpatient physician will decide further regimen moving forward - you will also be discharged on metoprolol and atorvastatin - continue lisinopril -Please follow-up with Cardiology upon discharge. Please call their office to schedule hospital follow-up appointment upon discharge. -Please call your primary care provider's office upon discharge to schedule a hospital follow up within 1 week. -For any concerning signs or symptoms please call 911 or proceed to the nearest emergency department Physical Exam Narrative General: Alert, oriented, no apparent distress HEENT: Atraumatic, normocephalic Eyes: Anicteric, normal conjunctiva, extraocular movements grossly intact Neck: Supple Respiratory: Clear to auscultation bilaterally, normal respiratory effort Cardiovascular: Regular rate and rhythm GI: Soft, nontender, nondistended Extremities: No edema Musculoskeletal: Moving all extremities Neuro: No overt focal neurological deficits Skin: No rashes appreciated Psych: Cooperative Weight / BMI Weight Weight: 75.75 kg Body Mass Index (BMI) 29.5 ABG / Lab / Microbiology Data 05/21/24 07:59 05/21/24 07:59 Laboratory: Laboratory Results - last 24 hr 05/21/24 07:59: WBC 7.8, RBC 4.62, Hgb 13.0, Hct 39.4, MCV 85.3, MCH 28.1, MCHC 33.0, RDW Std Deviation 42.6, RDW Coeff of Adolfo 13.7, Plt Count 195, MPV 10.5, Immature Gran % (Auto) 0.500, Neut % (Auto) 69.9, Lymph % (Auto) 19.1, Preston % (Auto) 8.7, Eos % (Auto) 1.4, Baso % (Auto) 0.4, Absolute Neuts (auto) 5.5, Absolute Lymphs (auto) 1.49, Nucleated RBC % 0, Sodium 139, Potassium 3.5, Chloride 110 H, Carbon Dioxide 25.0, Anion Gap 5, BUN 12, Creatinine 0.58, Estim Creat Clear Calc 101.79, Est GFR (MDRD) Af Amer 137, Est GFR (MDRD) Non-Af 113, BUN/Creatinine Ratio 20.7 H, Glucose 112 H, Calcium 9.1 Radiography Diagnostic Testing: Radiology Impression Echocardiogram 05/20/24 05:55 Interpretation Summary The estimated ejection fraction is 60 %. Stage 1 diastolic dysfunction. Structually normal valves. The study was technically difficult. Contrast injection was performed. Ordering Physician: Perry Pittman Referring Physician: Pascual Zafar Performed By: Sisi Payton and Student D/C Instructions Discharge Diet: - (DASH diet) DC O2, CPAP, BIPAP Needs Additional Home O2 Discharge instructions: No DC home with Oxygen: No Meaningful Use Info Meaningful Use Meaningful Use Diagnoses (Choose all that apply): AMI AMI/Post PCI/Angioplasty Aspirin given w/in 24hrs of arrival?: Yes ASA at discharge?: Yes Antiplatelet Therapy at Discharge:: Yes Statins at discharge?: Yes Wallace/ARB at discharge?: Yes Beta Juan at discharge?: Yes Done w/ Acute [place] measure.: Yes Documented LVEF (%): 60 Ischemic Stroke Statin Dosing Therapy Reference: STATIN DOSE THERAPY REFERENCE: * Patients > 75 years receive moderate or high dose statin therapy. * Patients 75 years or YOUNGER should receive HIGH intensity statin dose unless contraindicated. You will be required to document reason for non-treatment if statin daily dose does not meet guidelines. HIGH DOSE STATIN THERAPY DAILY Atorvastatin > than or = to 40 mg Rosuvastatin > than or = to 20 mg Amlodipine + Atorvastatin > than or = to 2.5/40 mg Ezetimibe + Simvastatin 10/80 mg Simvastatin 80mg Discharge Plan Admission Admit Date/Time: 05/19/24 19:39 Primary Reason for Your Visit: Chest pain Attending Provider: Sydnee Lofton Primary Care Provider: Pascual Zafar Consulting Providers: Miguel Goodson; Perry Pittman Instructions Patient Instructions: DASH Plan Eat Heart Healthy Food Additional Instructions / Restrictions: DISCHARGE INSTRUCTIONS PLEASE READ *Please take this with you to your next doctors appointment* -you will be discharged on aspirin and clopidogrel, you will need to take both for 1 year at which time your outpatient physician will decide further regimen moving forward - you will also be discharged on metoprolol and atorvastatin - continue lisinopril -Please follow-up with Cardiology upon discharge. Please call their office to schedule hospital follow-up appointment upon discharge. -Please call your primary care provider's office upon discharge to schedule a hospital follow up within 1 week. -For any concerning signs or symptoms please call 911 or proceed to the nearest emergency department Discharge Orders/Prescriptions Prescriptions: New atorvastatin 80 mg Tablet 80 mg PO QHS 30 Days Qty: 30 0RF clopidogrel 75 mg Tablet 75 mg PO DAILY 30 Days Qty: 30 0RF aspirin 81 mg Tablet,Chewable 81 mg PO BREAKFAST 30 Days Qty: 30 0RF metoprolol tartrate 25 mg Tablet 12.5 mg PO BID 30 Days Qty: 30 0RF Continued lisinopril 10 mg tablet 10 mg PO DAILY Referrals / Follow Up: [facility] [Provider Group] ( -Please follow-up with cardiology upon discharge. Please call their office to schedule hospital follow-up appointment upon discharge.) Pascual Zafar DO [Primary Care Provider] - Within 1 Week Disposition Disposition (needs filled in before D/C Order can be placed): Home, Self Care Charges/Coding Visit Charges Inpatient E&M: 99171 Disch Hosp
--- NOTE | 2024-05-21 10:27 | CASEMGMT ---
Patient has order for discharge. RN CM in to discuss needs at discharge. Patient independent in room, at bedside. Patient denies needs or help at discharge. Patient had no further questions or concerns.
--- NOTE | 2024-05-21 11:19 | PHA.DC.MC.R ---
Pharmacy [facility] has performed discharge medication reconciliation and counseling for this patient. The patient's discharge medication list was reviewed for discrepancies and discrepancies were resolved. The patient was counseled on the following discharge medications and changes in medications for homegoing were reviewed. The Reason for Use, instructions for use, and potential side effects were reviewed for all new medications. The patient's questions regarding all of their medications were answered. 1. Aspirin 81 mg PO daily 2. Atorvastatin 80 mg PO QHS 3. Clopidogrel 75 mg PO daily 4. Metoprolol 12.5 mg PO BID The patient was able to verbally demonstrate an understanding of their discharge medications. The patient was counselled on new medications by certified pharmacy technician Da. Medications at Discharge Home Medications lisinopril 10 mg tablet 10 mg PO DAILY 05/19/24 aspirin 81 mg chewable tablet 81 mg PO BREAKFAST 30 days #30 tabs 05/21/24 atorvastatin 80 mg tablet 80 mg PO QHS 30 days #30 tabs 05/21/24 clopidogrel 75 mg tablet 75 mg PO DAILY 30 days #30 tabs 05/21/24 metoprolol tartrate 25 mg tablet 12.5 mg (1/2 x 25 mg) PO BID 30 days #30 tabs 05/21/24
== END 2024-05-21 11:13 | disposition home or self-care (01) | DRG 282 ==
LOC: ED 19:29 → PCU 19:56
PROVIDERS: Admitting Provider Internal Medicine; Emergency Provider Emergency Medicine; PCP Family Medicine; Visit Provider Internal Medicine
DX: I21.4 Non-ST elevation (NSTEMI) myocardial infarction (principal); E66.3 Overweight; I10 Essential (primary) hypertension; I25.10 Atherosclerotic heart disease of native coronary artery without angina pectoris; J06.9 Acute upper respiratory infection, unspecified; Z68.29 Body mass index [BMI] 29.0-29.9, adult; Z82.49 Family history of ischemic heart disease and other diseases of the circulatory system; Z79.899 Other long term (current) drug therapy
CPT/HCPCS: 36415; 71045; 80048; 80053; 80061; 84443; 84484; 85025; 85027; 85610; 85730; 93005; 93306; 93454; 99152; 99153; 99285; Q9957; Q9967; A4216; C1769; C1894; C8929